=== PATIENT | female | born 1970 | race Two or more races ===

== ENCOUNTER 2024-01-08 02:04 | Emergency (ER) | payer MEDICAID, OTHER ==
[~2024-01-08] VITALS: Ht 172.7 cm; Wt 86.1 kg
[2024-01-08 02:16] VITALS: BP 156/97; PULSE 82; RESP 20; O2SAT 96
== END 2024-01-08 03:29 | disposition left against medical advice (07) ==
LOC: ER 02:04
DX: M79.641 Pain in right hand (principal); Z53.21 Procedure and treatment not carried out due to patient leaving prior to being seen by health care provider; W18.39XA Other fall on same level, initial encounter; Y93.89 Activity, other specified; Y92.89 Other specified places as the place of occurrence of the external cause; Y99.8 Other external cause status

== ENCOUNTER 2024-04-08 02:27 | Emergency (ER) | payer MEDICAID, OTHER ==
[2024-04-08] MEDS ORDERED: METH-1181 PO (10:56)
[2024-04-08] MEDS ORDERED: MELO7.5T7 PO (10:56)
== END 2024-04-08 03:47 | disposition left against medical advice (07) ==
LOC: EDSEX → ER 02:27
DX: Z53.21 Procedure and treatment not carried out due to patient leaving prior to being seen by health care provider (principal)

== ENCOUNTER 2024-04-08 08:32 | Emergency (ER) | payer OTHER ==
[~2024-04-08] VITALS: Ht 172.7 cm; Wt 86.9 kg
[2024-04-08 09:57] VITALS: BP 155/92; PULSE 90; RESP 18; TEMP 98; O2SAT 96
--- NOTE | 2024-04-08 10:28 | ED.PDOC ---
Musculoskeletal HPI Comments 53 year year old male presents for left should and right toe pain after hitting punching bag. Pain rated moderate. Worsen with movement. Able to ambulate without assistive devices Chief Complaint: Lower Extremity Time Seen by MD: 08:46 Primary Care Provider: NONE Reviewed Notes: Nurses Notes, Medications, Allergies Allergies: Coded Allergies: NO KNOWN ALLERGIES (Unverified , 01/08/24) Home Meds Active Scripts Methocarbamol (Methocarbamol) 500 Mg Tab, 500 MG PO Q8HPRN PRN for 10 Days, #30 TAB 0 Refills Prov:FLACO BOSS NP 04/08/24 Meloxicam (Meloxicam) 7.5 Mg Tab, 1 TAB PO DAILY for 30 Days, #30 TAB 0 Refills Prov:FLACO BOSS DESK [employer]ERKS SUPERVISOR 04/08/24 Information Source: Patient Mode of Arrival: Ambulatory Past Medical History PAST MEDICAL HISTORY: Denies Surgical History: Denies all surgeries Social History Smoker: Non-Smoker Alcohol: Denies ETOH Use Drugs: Denies Drug Use All Other Systems: Reviewed and Negative (per hpi) Physical Exam General Appearance: No Apparent Distress, Normal HEENT: Normal ENT Inspection, Pharynx Normal, TMs Normal Neck: Full Range of Motion, Non-Tender, Normal, Normal Inspection Respiratory: Chest Non-Tender, Lungs Clear, No Accessory Muscle Use, No Respiratory Distress, Normal Breath Sounds Cardiovascular: No Edema, No JVD, No Murmur, No Gallop, Normal Peripheral Pulses, Regular Rate/Rhythm Breast Exam: Deferred Gastrointestinal: No Organomegaly, Non Tender, No Pulsatile Mass, Normal Bowel Sounds, Soft Genitalia: Deferred Pelvic: Deferred Rectal: Deferred Extremities: No calf tenderness, Normal capillary refill, Normal inspection, Normal range of motion, Non-tender, No pedal edema Musculoskeletal : Location: Right Extremity Location: Great Toe (normal on inspection), Shoulder (Full ROM. No crepitus. No erytema or swelling.) Apperance: Normal Neurologic: Alert, surfacing technician II-XII nml as Tested, No Motor Deficits, Normal Affect, Normal Mood, No Sensory Deficits Cerebellar Function: Normal Reflexes: Normal Skin: Dry, Normal Color, Warm Lymphatic: No Adenopathy Was a procedure done? Was a procedure done?: No Differential Diagnosis EXT Differential Diagnosis: Fracture, Sprain, Dislocation X-Ray, Labs, Meds, VS Vital Signs Date Time Temp Pulse Resp B/P (MAP) Pulse Ox O2 Delivery O2 Flow Rate FiO2 04/08/24 09:57 98.0 90 18 155/92 (113) 96 98.0 04/08/24 09:57 90 18 96 Room Air 04/08/24 08:40 98.0 90 18 155/92 (113) 96 Current Medications Medications (Trade) Dose Ordered Sig/Rony Route Start Time Stop Time Status Last Admin Ketorolac Tromethamine (Toradol Injection) 60 mg ONCE ONCE IM 04/08/24 10:30 04/08/24 10:40 DC 04/08/24 10:45 X-Ray, Labs, Meds, VS Comment History and physical exam consistent with musculoskeletal pain. Supportive care advised (rest, ice, heat, NSAIDs, stretching exercises) Massage muscles with cold pack or ice for 20 minutes 4 times per day. Usually most useful if there is swelling during the first 48 hours Heating pad on the most painful area for 20 minutes to relieve muscle spasm Sleep and the most comfortable sleeping position (usually on the side with knees bent) Light stretching, no strenuous activity, avoid frequent bending, avoid carrying heavy objects Discussed possible benefits of yoga and acupuncture Return precautions discussed including Inability to walk/bear weight Paresthesia/weakness/leg pain Fecal/urinary incontinence Any worsening symptoms Patient is stable for discharge at this time. External notes reviewed. Test results and diagnostic imaging interpreted. All diagnostic findings, discharge care, education and instructions provided Follow-up with PCP in 2 to 3 days Patient verbalized understanding and agreed to treatment plan Vital signs stable, afebrile, no acute distress noted Patient ambulatory with strong steady gait Advised to return precautions for any new or worsening symptoms, return to ER immediately for re-evaluation Patient is aware that the purpose of this visit was for an acute medical emergency requiring emergent stabilization. Chronic conditions, including malignancies have not been ruled out. Patient is instructed to follow up with PCP as directed and discharge instructions for continued care and workup. If unable to arrange follow-up, patient is to return to the emergency department for reassessment. Patient (parent or legal guardian if applicable) was given verbal and written discharge instructions and acknowledges understanding. Time of 1ST Reevaluation: 10:26 Reevaluation 1ST: Improved Patient Education/Counseling: Diagnosis, Treatment Family Education/Counseling: Diagnosis, Treatment Departure 1 Departure Time of Disposition: 10:55 Impression: Primary Impression: Internal derangement of left shoulder Additional Impression: Toe pain, right Disposition: 01 HOME / SELF CARE / HOMELESS Condition: Stable e-Prescriptions Methocarbamol (Methocarbamol) 500 Mg Tab 500 MG PO Q8HPRN PRN for 10 Days, #30 TAB 0 Refills Prov: FLACO BOSS NP 04/08/24 Meloxicam (Meloxicam) 7.5 Mg Tab 1 TAB PO DAILY for 30 Days, #30 TAB 0 Refills Prov: FLACO BOSS NP 04/08/24 Discharged With: Self Critical Care Note Critical Care Time?: No Stability Stability form required: No Heart Score Heart Score: Heart Score Response (Comments) Value History N/A 0 EKG N/A 0 Age N/A 0 Risk Factors N/A 0 Troponin N/A 0 Total 0 FLACO BOSS NP Apr 08, 2024 10:28
[2024-04-08] MEDS: KETOROLAC TROMETH 60MG/2ML VIAL IM ONE (10:45)
--- NOTE | 2024-04-08 10:48 | DVH ---
CLINICAL INDICATION: Pain/Fracture to great toe or 2nd toe TECHNIQUE: XY R FOOT 3 VIEW XRAY Comparison: None FINDINGS/IMPRESSION: : There is no evidence of acute fracture or dislocation. Soft tissues are unremarkable.
--- NOTE | 2024-04-08 10:53 | DVH ---
CLINICAL INDICATION: pain. dislocation OA TECHNIQUE: XY L SHOULDER 2+ VIEW XRAY Comparison: None FINDINGS/IMPRESSION: : There is no evidence of acute fracture or dislocation. Soft tissues are unremarkable.
[2024-04-08] MEDS ORDERED: MELO7.5T7 PO (10:56)
[2024-04-08] MEDS ORDERED: METH-1181 PO (10:56)
== END 2024-04-08 11:05 | disposition home or self-care (01) ==
LOC: ER 08:32 → EDSEX 08:32 → ER 11:04
DX: M24.9 Joint derangement, unspecified (principal); M79.674 Pain in right toe(s); Z79.1 Long term (current) use of non-steroidal anti-inflammatories (NSAID); Z79.899 Other long term (current) drug therapy
CPT/HCPCS: 73030; 73630; 96372; 99284; J1885

== ENCOUNTER 2024-07-16 22:59 | Emergency (ER) | payer OTHER ==
[~2024-07-16 22:59] MED LIST: MELO7.5T7 PO; METH-1181 PO
== END 2024-07-17 00:08 | disposition left against medical advice (07) ==
LOC: ER 22:59
DX: M25.559 Pain in unspecified hip (principal); Z53.21 Procedure and treatment not carried out due to patient leaving prior to being seen by health care provider